=== PATIENT | female | born 2005 | race Caucasian/White ===

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

== ENCOUNTER 2023-05-14 21:01 | Emergency (ER) | payer BC, SELFPAY ==
[2023-05-14 21:14] VITALS: BP 109/88; PULSE 97; RESP 20; TEMP 36.6; O2SAT 98
--- NOTE | 2023-05-14 23:45 | PC.NURSE ---
Patient called for registration, no answer and not seen in waiting room. Patient marked as left without being seen triaged.
== END 2023-05-15 00:38 | disposition left against medical advice (07) ==
LOC: ANHED 05-15 00:26
DX: O20.9 Hemorrhage in early pregnancy, unspecified (principal); Z3A.09 9 weeks gestation of pregnancy
CPT/HCPCS: 99199

== ENCOUNTER 2023-05-15 01:24 | Emergency (ER) | payer BC, SELFPAY ==
--- NOTE | ~2023-05-15 | US_ITS ---
Pelvic ultrasound. Clinical History: First trimester , ectopic Technique: Realtime transabdominal and transvaginal scanning of the pelvis was performed. Color flow Doppler and Doppler spectral analysis were performed. Findings: The uterus is anteverted. The endometrial stripe has a thickness of 9 mm. No intrauterine gestational sac is identified. Small cervical nabothian cysts are present. The right ovary measures 2.7 x 2.3 x 3.3 cm. Right ovarian cyst measures 2.7 cm in diameter. The left ovary measures 2.7 x 2.1 x 1.7 cm. No significant left ovarian or adnexal mass is seen. There is no evidence of free fluid in the cul de sac. Impression: Positive test without intrauterine gestation. Differential diagnosis includes early normal , spontaneous , or nonvisualized ectopic . Correlate clinically. Continued follow-up with serial beta hCG, and repeat ultrasound as warranted, is advised. Reviewed, dictated and finalized at [facility]. [facility] Impression: Positive test without intrauterine gestation. Differential diagnosis includes early normal , spontaneous , or nonvisualized ectopic . Correlate clinically. Continued follow-up with serial beta hCG, and repeat ultrasound as warranted, is advised.
[2023-05-15 01:28] VITALS: BP 130/87; PULSE 88; RESP 19; TEMP 36.6; O2SAT 100
[2023-05-15 02:02] LABS: Basophils Absolute Auto 0.1 K/mm3 (0.0-0.1); Basophils Percent Auto 0.6 % (0.2-1.2); Eosinophils Absolute Auto 0.2 K/mm3 (0-0.3); Eosinophils Percent Auto 2.2 % (0-4.4); Hematocrit 44.4 % (37.0-47.0); Hemoglobin 14.5 g/dL (12.0-15.0); Immature Granulocyte Absolute 0.05 K/mm3 (0.00-0.031); Immature Granulocyte Percent A 0.6 % (0-0.5); Lymphocytes Absolute Auto 3.35 K/mm3 (0.9-3.2); Lymphocytes Percent Auto 37.2 % (18.3-44.2); Mean Corpuscular HGB Conc 32.7 g/dl (32-36); Mean Corpuscular Hemoglobin 29.7 pg (26-34); Mean Corpuscular Volume 90.8 fl (80-100); Mean Platelet Volume 10.1 fl (7.4-10.4); Monocytes Absolute Auto 0.6 K/mm3 (0.1-0.6); Monocytes Percent Auto 6.8 % (2.6-8.5); Neutrophils Absolute Auto 4.8 K/mm3 (1.3-6.7); Neutrophils Percent Auto 52.6 % (45.5-73.1); Platelet Count Result 303 k/mm3 (150-375); Red Blood Count 4.89 M/mm3 (4.2-5.4); Red Cell Distribution Width 13.8 % (11.5-14.5)
[2023-05-15 02:21] LABS: Alanine Aminotransferase 23 U/L (6-35); Albumin Level 4.2 g/dL (3.5-5.1); Alkaline Phosphatase 91 U/L (38-126); Anion Gap 14 mmol/L (8-16); Aspartate Amino Transferase 30 U/L (14-36); Bilirubin,Total 0.3 mg/dL (0.2-1.3); Blood Urea Nitrogen 13 mg/dL (7-17); Calcium 9.5 mg/dL (8.4-10.2); Carbon Dioxide 20 mmol/L (22-30); Chloride 110 mmol/L (98-107); Estimated Glomerular Filt Rate > 60; Glucose 95 mg/dL (65-110); Potassium 3.7 mmol/L (3.4-5.0); Sodium 144 mmol/L (137-145)
[2023-05-15 02:49] LABS: Beta HCG Quantitative 30.62 mIU/ML
--- NOTE | 2023-05-15 06:00 | ED.GENADULT ---
HPI - General Adult General Chief complaint: Vaginal Bleeding Stated complaint: Vaginal bleeding, 9weeks preg Time Seen by Provider: 05/15/23 04:29 History of Present Illness HPI narrative: This is a 18-year-old female presenting to ED vaginal bleeding. Patient's last menstrual period sometime in the beginning of March. Patient says she has taken multiple positive test. Starting Monday she woke up with some vaginal bleeding. She has been going through 6 or 7 pads per days. She also has some crampy abdominal pain in the passage of clots and tissue. Patient is homeless. She has not seen OBGYN yet. Related Data Home Medications Medication Instructions Recorded Confirmed albuterol sulfate 90 mcg/actuation 1 puff inhalation Q4H PRN 03/03/21 aerosol inhaler Allergies Allergy/AdvReac Type Severity Reaction Status Date / Time No Known Allergies Allergy Verified 05/14/23 21:17 [facility] Family History Family History Grandparent Skin cancer Diabetes mellitus Congestive heart failure Rectal cancer Hypertension Heart disease Father Depression Mother Asthma Grandparent Depression Social History Social History Smoking status: Former smoker Alcohol intake: never Substance use: current Spiritual care concerns: No Exam Narrative: APPEARANCE: No apparent distress. Head: atraumatic. EYES: EOMI, NOSE: Atraumatic NECK: Trachea midline RESPIRATORY: No increased rate of breathing CARDIOVASCULAR: RRR, ABDOMINAL: Soft, mild tenderness suprapubic area. No guarding or rebound MUSCULOSKELETAl: No obvious deformities NEURO: Alert. Moving 4/4 extremities SKIN:: Warm, dry. Normal color PSYCHIATRIC: Normal affect Pelvic exam showed some mild blood in the vaginal vault. unable to visualize the cervical os. Course Vital Signs Vital signs: Vital Signs Temperature 97.8 F 05/15/23 01:28 Pulse Rate 88 05/15/23 01:28 Respiratory Rate 19 05/15/23 01:28 Blood Pressure 130/87 05/15/23 01:28 Pulse Oximetry 100 05/15/23 01:28 Oxygen Delivery Room Air 05/15/23 01:28 Temperature 97.8 F 05/15/23 01:28 Pulse Rate 72 05/15/23 06:34 Respiratory Rate 15 05/15/23 06:34 Blood Pressure 101/52 L 05/15/23 06:34 Pulse Oximetry 100 05/15/23 06:34 Oxygen Delivery Room Air 05/15/23 01:28 Medical Decision Making MDM Narrative Medical decision making narrative: -Course: 18-year-old female presenting with vaginal bleeding in . Pelvic exam showed some blood in the vaginal vault but no significant bleeding. Vital signs are stable. hemoglobin is 14.6. Beta quant is 30.62. Transvaginal ultrasound showed a 2.7 cm cyst right ovary and no visible fetus in the uterus. Case was discussed with Dr. Friedman. Patient will be discharged with 48hr outpatient follow-up. -DDX includes but is not limited to: Miscarriage, ectopic , retained products conception -Co-morbidities complicating care: Homeless -Social determinants of health: Homeless, unemployed -Independent interpretation of studies: Hemoglobin 14.5. Metabolic panel normal. HGC 30.62. Blood type A positive -Shared decision making / Disposition: discharged. Vital Signs Vital Signs: Vital Signs Temperature 97.8 F 05/15/23 01:28 Pulse Rate 88 05/15/23 01:28 Respiratory Rate 19 05/15/23 01:28 Blood Pressure 130/87 05/15/23 01:28 Pulse Oximetry 100 05/15/23 01:28 Oxygen Delivery Room Air 05/15/23 01:28 Temperature 97.8 F 05/15/23 01:28 Pulse Rate 72 05/15/23 06:34 Respiratory Rate 15 05/15/23 06:34 Blood Pressure 101/52 L 05/15/23 06:34 Pulse Oximetry 100 05/15/23 06:34 Oxygen Delivery Room Air 05/15/23 01:28 Lab Data 05/15/23 01:51 05/15/23 01:51 Labs: Lab Results 05/15/23 Range/Unit
[2023-05-15 06:34] VITALS: BP 101/52; PULSE 72; RESP 15; O2SAT 100
== END 2023-05-15 07:46 | disposition home or self-care (01) ==
PROVIDERS: Emergency Provider Emergency Medicine
DX: O03.9 Complete or unspecified spontaneous abortion without complication (principal); Z87.891 Personal history of nicotine dependence
CPT/HCPCS: 36415; 76801; 76817; 80053; 84702; 85025; 85461; 86850; 86900; 86901; 99284